=== PATIENT | female | born 1970 | race Caucasian/White ===

== ENCOUNTER 2020-03-10 21:45 | Inpatient (IN) | payer MEDICAID ==
[~2020-03-10] VITALS: Ht 162.6 cm; Wt 68.9 kg
[2020-03-10] MEDS ORDERED: KETOROLAC TROMETHAMINE 15 MG/ML VIAL ONE (22:21)
[2020-03-10] MEDS ORDERED: ONDANSETRON HCL/PF 4 MG/2 ML VIAL ONE (22:21)
[2020-03-10] MEDS ORDERED: ONDANSETRON HCL/PF 4 MG/2 ML VIAL IVP ONE (22:30)
[2020-03-10] MEDS ORDERED: IV NS 0.9% 500 ML BAG IV ONE (22:30)
[2020-03-10] MEDS ORDERED: KETOROLAC TROMETHAMINE INJ 30 MG/ML VIAL IV ONE (22:30)
--- NOTE | 2020-03-10 22:47 | NUR ---
VINCE FROM HOME FOR C/O FLU LIKE SYMTOMS (FEVER, CHILLS, BODY ACHE, N/V/D SOB, CP) X10 DAYS WORSE FOR PAST 2 DAYS. PT AAOX4, VSS. RR EVEN & UNLABORED. PLACED ON MONORAIL OPERATOR, SR. PT SEEN & EVAL'D BY DR. BARNES. MEDICATED ORDERED, PT BOB WELL. WILL CONT TO MONITOR.
[2020-03-10 22:48] LABS: BASOPHILS % (AUTO) 0.2 % (0.0-2.0); EOSINOPHILS % (AUTO) 0.6 % (0.0-6.0); HEMATOCRIT 43 % (33-45); HEMOGLOBIN 14.1 g/dL (11.5-14.8); LYMPHOCYTES # (AUTO) 1.5 /CMM (0.8-4.8); LYMPHOCYTES % (AUTO) 29.9 % (20.0-44.0); MEAN CORPUSCULAR HGB CONC 33 g/dl (31.0-36.0); MEAN CORPUSCULAR VOLUME 88 fL (82-100); MONOCYTES # (AUTO) 0.3 /CMM (0.1-1.30); MONOCYTES % (AUTO) 6.3 % (2.0-12.0); NEUTROPHILS # (AUTO) 3.3 /CMM (1.8-8.9); PLATELET COUNT (AUTO) 315 /CMM (150-450); RED BLOOD CELL COUNT(AUTO) 4.89 MIL/uL (4.0-5.2); WHITE BLOOD COUNT (AUTO) 5.2 K/uL (4.3-11.0)
[2020-03-10 23:02] LABS: ALBUMIN 3.7 g/dL (3.4-5.0); BILIRUBIN,DIRECT 0.2 mg/dL (0.0-0.2); BILIRUBIN,TOTAL 0.6 mg/dL (0.2-1.0); CALCIUM, SERUM 9.1 mg/dL (8.5-10.1); CREATININE 0.7 mg/dL (0.6-1.3); POTASSIUM 3.7 mmol/L (3.5-5.1); TOTAL PROTEIN, SERUM 7.7 g/dL (6.4-8.2)
[2020-03-10 23:57] LABS: ABG BASE EXCESS 0.6 mmol/L; ABG PCO2 37.4 mmHg (35.0-45.0); ABG PH 7.436 (7.350-7.450); ABG PO2 74.2 mmHg (75.0-100.0); AaDO2 81.3 mmHg; COHb 0.3 % (0.5-1.5); MetHb 0.4 % (0.0-1.5); O2Hb 93.3 % (94.0-97.0); SITE, ABG Left Radial; VENT MODE, BG 2LNC
[2020-03-11] MEDS ORDERED: ACETAMINOPHEN ES 500 MG TABLET ONE (00:05)
[2020-03-11 00:15] LABS: B-TYPE NATRIURETIC PEPTIDE 56 PG/ML (0-125)
--- NOTE | 2020-03-11 00:19 | NUR ---
GOT PT'S FRIEND , RAJ, ON THE PHONE MANAGER OF FINANCIAL REPORTING. PT GOT UPDATED WITH HER STATUS AND PENDING ADMISSION. PROCEDURE EXPLAINED TO THE PT AND COVID SWAB OBTAIBED AND SENT TO THE LAB. MEDICATED ORDERED AND WARM BLANKET PROVIDED PER PT'S REQUESTED. WILL CONT TO MONITOR ,
[2020-03-11 00:26] LABS: CREATINE KINASE, TOTAL 68 U/L (26-192); FERRITIN 339 ng/mL (8-388)
[2020-03-11 00:28] LABS: C-REACTIVE PROTEIN 5.1 mg/dL (0.0-0.9)
[2020-03-11] MEDS ORDERED: ACETAMINOPHEN ES 500 MG TABLET PO ONE (00:30)
[2020-03-11 00:46] LABS: D-DIMER 0.74 mg/L(FEU (0.17-0.50)
[2020-03-11] MEDS ORDERED: DEXAMETHASONE SOD PHOSPHATE 10 MG/ML VIAL ONE (01:58)
[2020-03-11] MEDS ORDERED: DEXAMETHASONE SOD PHOSPHATE 6 MG in IV D5W 50 ML IV ONE (02:00)
--- NOTE | 2020-03-11 02:06 | NUR ---
BED IS 104
[2020-03-11] MEDS ORDERED: MAGNESIUM HYDROXIDE 30 ML UDC PO PRN (02:30)
[2020-03-11] MEDS ORDERED: MORPHINE SULFATE INJ 2 MG/ML DISP.SYRIN IV PRN (02:30)
[2020-03-11] MEDS ORDERED: ACETAMINOPHEN 325 MG TABLET PO PRN (02:30)
[2020-03-11] MEDS ORDERED: ZOLPIDEM TARTRATE 5 MG TABLET PO PRN (02:30)
[2020-03-11] MEDS ORDERED: ALBUTEROL SULFATE INH 18 GM HFA.AER.AD IH PRN (02:30)
--- NOTE | 2020-03-11 02:33 | NUR ---
REPRT GIVEN TO JU AT [facility]
--- NOTE | 2020-03-11 02:49 | NUR ---
PT WAS TRANSFERRED TO RM 104 UNDER ACLS
[2020-03-11 03:21] VITALS: BP 140/76
[2020-03-11] MEDS ORDERED: CEFTRIAXONE 1 G VIAL ONE (03:38)
[2020-03-11] MEDS: AZITHROMYCIN 250 MG TABLET PO SCH ×2 (03:43→21:03)
[2020-03-11] MEDS: CEFTRIAXONE 1 G in IV D5W 50 ML IV SCH (03:43)
[2020-03-11 04:00] VITALS: BP 138/70
--- NOTE | 2020-03-11 04:24 | NUR ---
RN notes Admitted a 50 yr old belgian female from ER from [facility] in stable condition. On 2lpm O2 via nasal cannula tolerating well. No medical history, admitted for possible covid 19 infection and PNA. Skin assessment done, skin intact. Vital signs WNL. Alert and oriented, belgian speaking, ambulatory. No complaint of pain or discomfort. Needs attended. Kept clean and dry.
--- NOTE | 2020-03-11 05:17 | NUR ---
RN notes Complaining of pain in the abdomen 03/07, morphine 1 mg given with relief.
--- NOTE | 2020-03-11 07:45 | NUR ---
LABORER PLUMBING NOTES PATIENT RECEIVED IN BED, ALERT AND ORIENTED X 4. CYMRO SPEAKING. ON 2L NASAL CANNULA, WITH NO SOB NOTED, AND NON-LABORED BREATHING.NON PRODUCTIVE COUGH PRESENT. ON PRODUCTION SAMPLER, SINUS RHYTHM 90'S. PATIENT IV ACCESS INTACT AND PATENT. SAFETY PRECAUTIONS IMPLEMENTED WITH BED LOCKED, BED IN THE LOWEST POSITION, BILATERAL SIDE RAILS UP AND CALL LIGHT WITHIN EASY REACH OF THE PATIENT. WILL CONTINUE TO MONITOR.
[2020-03-11 08:00] VITALS: BP 120/67
[2020-03-11] MEDS: DEXAMETHASONE SOD PHOSPHATE 10 MG/ML VIAL IV SCH (08:26)
[2020-03-11] MEDS: ENOXAPARIN SODIUM 40 MG/0.4 ML DISP.SYRIN SQ SCH (08:27)
[2020-03-11] MEDS ORDERED: ACET-868 PO (08:32)
--- NOTE | 2020-03-11 09:50 | NUR ---
RN/DOMINIC RECEIVED REPORT FROM TERI. PATIENT IN BED. NO ACUTE DISTRESS NOTED. PATIENT ALERT & ORIENTED X4. PATIENT ON ROOM AIR, SATURATING WELL AT 94%, BREATHING EVEN AND UNLABORED. PATIENT ON HEARINGS REPORTER, SINUS RHYTHM NOTED. PATIENT RIGHT ANTECUBITAL IV ACCESS INTACT, PATENT, FLUSHED WELL. PATIENT SAFETY MAINTAINED. CALL LIGHT WITHIN REACH. WILL CONTINUE TO MONITOR.
[2020-03-11 10:50] LABS: HEMATOCRIT 42 % (33-45); HEMOGLOBIN 13.6 g/dL (11.5-14.8); LYMPHOCYTES # (AUTO) 0.6 /CMM (0.8-4.8); LYMPHOCYTES % (AUTO) 20.2 % (20.0-44.0); MEAN CORPUSCULAR HGB CONC 32 g/dl (31.0-36.0); MEAN CORPUSCULAR VOLUME 88 fL (82-100); MONOCYTES # (AUTO) 0.1 /CMM (0.1-1.30); MONOCYTES % (AUTO) 2.5 % (2.0-12.0); NEUTROPHILS # (AUTO) 2.4 /CMM (1.8-8.9); NEUTROPHILS % (AUTO) 77.3 % (43.0-81.0); PLATELET COUNT (AUTO) 315 /CMM (150-450); RED BLOOD CELL COUNT(AUTO) 4.77 MIL/uL (4.0-5.2); WHITE BLOOD COUNT (AUTO) 3.1 K/uL (4.3-11.0)
[2020-03-11 11:11] LABS: ALBUMIN 3.1 g/dL (3.4-5.0); BILIRUBIN,TOTAL 0.5 mg/dL (0.2-1.0); CALCIUM, SERUM 8.3 mg/dL (8.5-10.1); CREATININE 0.7 mg/dL (0.6-1.3); MAGNESIUM 2.4 mg/dL (1.8-2.4); POTASSIUM 3.9 mmol/L (3.5-5.1); TOTAL PROTEIN, SERUM 7.4 g/dL (6.4-8.2)
[2020-03-11 11:18] LABS: THYROID STIMULATING HORMONE 1.448 uIU/mL (0.358-3.74)
[2020-03-11 12:00] VITALS: BP 119/70
[2020-03-11] MEDS ORDERED: FUROSEMIDE 40 MG/4 ML VIAL IV ONE (15:30)
[2020-03-11 16:00] VITALS: BP 129/73
--- NOTE | 2020-03-11 18:37 | NUR ---
RN/DOMINIC PATIENT IN BED. NO ACUTE DISTRESS NOTED. PATIENT ALERT & ORIENTED X4. PATIENT ON 2L OXYGEN VIA NASAL CANULA, SATURATING WELL AT 94%, BREATHING EVEN AND UNLABORED. PATIENT ON MICROSOFT APPLICATION DEVELOPER, SINUS RHYTHM NOTED. PATIENT RIGHT ANTECUBITAL IV ACCESS INTACT, PATENT, FLUSHED WELL. PATIENT SAFETY MAINTAINED. CALL LIGHT WITHIN REACH. WILL ENDORSE PLAN OF CARE TO ONCOMING NURSE FOR CONTINUITY OF CARE
--- NOTE | 2020-03-11 19:10 | NUR ---
RN OPENING NOTES: RECEIVED PT A/OX4 IN BED RESTING COMFORTABLY. IVORIAN SPEAKING ONLY.PATIENT IN NO S/SX OF ACUTE DISTRESS AT THIS TIME. NO SOB NOTED. PATIENT'S BREATHING IS EVEN AND UNLABORED. PATIENT IS ON 2 L OF OXYGEN VIA NC; TOLERATING WELL. PATIENT ON TELE MONITORING READING SINUS RHYTHM HR IS @84 BPM AT TIME OF RECEIVED. NOTED IV SITE ON R AC #20; PATENT IN INTACT,NO S/S OF INFECTION OR INFILTRATION. SAFETY MEASURES HAVE BEEN PROVIDED AND IMPLEMENTED. PATIENT BED ALARM IS ON. HEAD OF BED ELEVATED. BED IS LOCKED, IN LOWEST POSITION AND SIDE RAILS UP. CALL LIGHT WITHIN REACH OF THE PATIENT. ISOLATION PRECAUTIONS IN PLACE. WILL CONTINUE TO MONITOR AND REASSESS FOR ANY CHANGES.
[2020-03-11] MEDS: MAG HYDROX/AL HYDROX/SIMETH 30 ML UDC PO PRN (19:25)
[2020-03-11 20:00] VITALS: BP 114/77
--- NOTE | 2020-03-11 20:05 | NUR ---
CRITICAL LAB VALUE MOLD MOVER NOTE: TELEPHONE CALL FROM TO OF CLINICAL LAB, STATED PATIENT'S COVID TEST RESULT IS POSITIVE. RESULT READ BACK. INFORMATION RELAYED TO PRIMARY RNROGELIO. LIFE INSURANCE SPECIALIST MADE AWARE.
[2020-03-11] MEDS: HYDROCODONE/APAP 5/325MG TABLET PO PRN (21:04)
--- NOTE | 2020-03-12 00:05 | NUR ---
RN NOTES GRIEVANCE MANAGER ENDORSED THAT PATIENT REFUSED TO HAVE HER VITAL SIGNS TAKEN; SPOKE WITH PATIENT AND EXPLAINED RISK AND BENEFITS. PT STILL REFUSED. ROLL FINISHER MADE AWARE.
[2020-03-12] MEDS: CEFTRIAXONE 1 G in IV D5W 50 ML IV SCH (03:04)
[2020-03-12 04:00] VITALS: BP 113/54
--- NOTE | 2020-03-12 06:35 | NUR ---
RN CLOSING NOTES PATIENT REMAINS IN ROOM IN NO SIGNS OF RESPIRATORY DISTRESS. PATIENT SATURATING 95%. VITAL SIGNS WNL. SAFETY PRECAUTIONS IN PLACE AND COMFORT MEASURES RENDERED. BED IN LOWEST POSITION, CALL LIGHT WITHIN REACH, BREAKS ON, SIDE RAILS UP. ALL NEEDS ATTENDED, MEDICATIONS GIVEN SCHEDULED AND ORDERED ; SHIFT ASSESSMENT/BEDBATH/SKIN CARE DONE. PATIENT KEPT CLEAN AND DRY. WILL ENDORSE TO INCOMING SHIFT FOR GUALBERTO.
[2020-03-12 06:47] LABS: BASOPHILS % (AUTO) 0.2 % (0.0-2.0); HEMATOCRIT 40 % (33-45); LYMPHOCYTES # (AUTO) 1.8 /CMM (0.8-4.8); LYMPHOCYTES % (AUTO) 28.4 % (20.0-44.0); MEAN CORPUSCULAR HGB CONC 33 g/dl (31.0-36.0); MEAN CORPUSCULAR VOLUME 88 fL (82-100); MONOCYTES # (AUTO) 0.6 /CMM (0.1-1.30); MONOCYTES % (AUTO) 9.2 % (2.0-12.0); NEUTROPHILS # (AUTO) 3.9 /CMM (1.8-8.9); NEUTROPHILS % (AUTO) 62.2 % (43.0-81.0); PLATELET COUNT (AUTO) 388 /CMM (150-450); RED BLOOD CELL COUNT(AUTO) 4.53 MIL/uL (4.0-5.2); WHITE BLOOD COUNT (AUTO) 6.2 K/uL (4.3-11.0)
[2020-03-12 07:01] LABS: CALCIUM, SERUM 8.8 mg/dL (8.5-10.1); CREATININE 0.7 mg/dL (0.6-1.3); MAGNESIUM 2.3 mg/dL (1.8-2.4); PHOSPHORUS 3.9 mg/dL (2.5-4.9); POTASSIUM 3.8 mmol/L (3.5-5.1)
--- NOTE | 2020-03-12 07:10 | NUR ---
RN OPENING NOTE: Received patient in bed. Awake, alert and oriented x4. Able to make needs known. Irish speaking only and needs attended to with help of Irish speaking staff present. Tele monitor showing sinus rhythm in the 70s. Isolation precaution in place for COVID-19. On cont. 02 via NC @ 2lpm being tolerated well. No SOB and not in respiratory distress. Coughing noted. Saturation at 94%. IV site clean, dry, patent and intact. No pain noted nor reported by patient. Appears relaxed and comfortable. Call light in reach. Bed locked, low and at semi-arrington's position. Side rails up x3. Safety ensured and observed. Will continue to monitor.
[2020-03-12 08:00] VITALS: BP 109/74
[2020-03-12] MEDS: DEXAMETHASONE SOD PHOSPHATE 10 MG/ML VIAL IV SCH (09:30)
[2020-03-12] MEDS: ENOXAPARIN SODIUM 40 MG/0.4 ML DISP.SYRIN SQ SCH (09:42)
[2020-03-12] MEDS ORDERED: DEXTROSE 50%-WATER 50 ML DISP.SYRIN IV PRN (10:00)
[2020-03-12] MEDS: MAG HYDROX/AL HYDROX/SIMETH 30 ML UDC PO PRN (11:29)
[2020-03-12 12:00] VITALS: BP 118/72
[2020-03-12] MEDS: BLOOD SUGAR DIAGNOSTIC 1 EACH STRIP IN SCH ×3 (12:00→21:44)
--- NOTE | 2020-03-12 13:00 | NUR ---
RN note: patient refused scheduled insulin dose. r/b explained, offered x3.
--- NOTE | 2020-03-12 14:00 | NUR ---
Rn note: Bertha Hoyt made rounds and saw patient.
[2020-03-12 16:00] VITALS: BP 121/82
[2020-03-12] MEDS: METFORMIN 500 MG TABLET PO SCH (18:19)
[2020-03-12] MEDS: HYDROCODONE/APAP 5/325MG TABLET PO PRN (18:19)
[2020-03-12] MEDS: INSULIN REGULAR, HUMAN 100 UNIT/ML 3 ML VIAL SQ PRN ×2 (18:48→21:45)
--- NOTE | 2020-03-12 19:05 | NUR ---
RN OPENING NOTES: RECEIVED PT A/OX4 IN BED RESTING COMFORTABLY. CHADIAN SPEAKING PATIENT.PATIENT IN NO S/SX OF ACUTE DISTRESS AT THIS TIME. NO SOB NOTED. PATIENT'S BREATHING IS EVEN AND UNLABORED. PATIENT IS ON 2 L OF OXYGEN VIA NC; TOLERATING WELL. PATIENT ON TELE MONITORING READING SINUS RHYTHM HR IS @56 BPM AT TIME OF RECEIVED. NOTED IV SITE ON R AC #20; PATENT IN INTACT,NO S/S OF INFECTION OR INFILTRATION. SAFETY MEASURES HAVE BEEN PROVIDED AND IMPLEMENTED. PATIENT BED ALARM IS ON. HEAD OF BED ELEVATED. BED IS LOCKED, IN LOWEST POSITION AND SIDE RAILS UP. CALL LIGHT WITHIN REACH OF THE PATIENT. ISOLATION PRECAUTIONS IN PLACE. WILL CONTINUE TO MONITOR AND REASSESS FOR ANY CHANGES.
--- NOTE | 2020-03-12 19:50 | NUR ---
RN CLOSING NOTE: No changes noted on shift. Patient remains in bed. Awake, alert and oriented x4. Able to make needs known. Serbian speaking only and needs attended to with help of Serbian speaking staff present and with family members over the phone contacted by the patient. Tele monitor showing sinus rhythm in the 70s. Isolation precaution in place for COVID-19. On room air and tolerating well, no SOB and not in respiratory distress. Coughing noted. Saturation at 96%. IV site clean, dry, patent and intact. No pain noted nor reported by patient. Appears relaxed and comfortable. Call light in reach. Bed locked, low and at semi-arrington's position. Side rails up x3. Safety ensured and observed. Treatment given as ordered. Patient refused scheduled insulin per blood sugar level. Endorsed to oncoming shift for GUALBERTO.
[2020-03-12 20:00] VITALS: BP 133/77
--- NOTE | 2020-03-12 23:45 | NUR ---
RN NOTES RECEIVED PATIENT, CALM, RESTING COMFORTABLY, SAFETY MEASURES IN PLACE, ASPIRATION PRECAUTION EMPHASIZED. NO SIGNS OF ACUTE RESPIRATORY OR CARDIAC DISTRESS NOTED. BED IN LOW LOCKED POSITION, CALL LIGHT WITHIN EASY REACH. KEEP CLEAN WARM DRY AND COMFORTABLE. IV ACCESS INTACT AND PATENT ON HER RIGHT AC G#20 INTACT AND PATENT. TELE MONITOR READS SINUS YULISA 58. ISOLATION PRECAUTION IN PLACE FOR COVID-19. ALL NEEDS ANTICIPATED. WILL CONTINUE TO MONITOR ACCORDINGLY.
[2020-03-13 00:55] VITALS: BP 141/81
[2020-03-13] MEDS: CEFTRIAXONE 1 G in IV D5W 50 ML IV SCH (03:02)
[2020-03-13 04:13] VITALS: BP 119/71
--- NOTE | 2020-03-13 06:31 | NUR ---
RN NOTES ALL NEEDS ATTENDED AND MET, ABLE TO REST AND SLEPT AT INTERVALS, PATIENT, CALM, RESTING COMFORTABLY, SAFETY MEASURES IN PLACE, ASPIRATION PRECAUTION EMPHASIZED. NO SIGNS OF ACUTE RESPIRATORY OR CARDIAC DISTRESS NOTED. BED IN LOW LOCKED POSITION, CALL LIGHT WITHIN EASY REACH. KEEP CLEAN WARM DRY AND COMFORTABLE. IV ACCESS INTACT AND PATENT ON HER RIGHT AC G#20 INTACT AND PATENT. TELE MONITOR READS SINUS YULISA 58. ISOLATION PRECAUTION IN PLACE FOR COVID-19. ALL NEEDS ANTICIPATED. WILL ENDORSE TO AM NURSE FOR CONTINUITY OF CARE.
[2020-03-13 06:51] LABS: BASOPHILS % (AUTO) 0.1 % (0.0-2.0); EOSINOPHILS % (AUTO) 0.1 % (0.0-6.0); HEMATOCRIT 39 % (33-45); HEMOGLOBIN 12.9 g/dL (11.5-14.8); LYMPHOCYTES # (AUTO) 1.9 /CMM (0.8-4.8); LYMPHOCYTES % (AUTO) 27.8 % (20.0-44.0); MEAN CORPUSCULAR HGB CONC 33 g/dl (31.0-36.0); MEAN CORPUSCULAR VOLUME 87 fL (82-100); MONOCYTES # (AUTO) 0.5 /CMM (0.1-1.30); MONOCYTES % (AUTO) 7.9 % (2.0-12.0); NEUTROPHILS # (AUTO) 4.4 /CMM (1.8-8.9); NEUTROPHILS % (AUTO) 64.1 % (43.0-81.0); PLATELET COUNT (AUTO) 431 /CMM (150-450); RED BLOOD CELL COUNT(AUTO) 4.52 MIL/uL (4.0-5.2); WHITE BLOOD COUNT (AUTO) 6.9 K/uL (4.3-11.0)
[2020-03-13] MEDS: BLOOD SUGAR DIAGNOSTIC 1 EACH STRIP IN SCH ×4 (07:34→21:28)
[2020-03-13] MEDS: INSULIN REGULAR, HUMAN 100 UNIT/ML 3 ML VIAL SQ PRN ×4 (07:35→21:29)
--- NOTE | 2020-03-13 07:35 | NUR ---
RN OPENING NOTE Patient is resting in bed, A/O x4, showing no signs of acute distress or SOB, saturating >95% on RA. BS this AM 97--no insulin coverage per protocol. IV line in the RAC#20 g is clean and intact flushing well. Bed is in lowest position, side rails x3 in upright position, call light is within reach, fall safety and aspiration precautions enforced. Will continue with plan of care.
[2020-03-13 07:58] LABS: ALBUMIN 3.3 g/dL (3.4-5.0); BILIRUBIN,TOTAL 0.4 mg/dL (0.2-1.0); CALCIUM, SERUM 8.7 mg/dL (8.5-10.1); CREATININE 0.7 mg/dL (0.6-1.3); MAGNESIUM 2.4 mg/dL (1.8-2.4); POTASSIUM 3.9 mmol/L (3.5-5.1); TOTAL PROTEIN, SERUM 8.7 g/dL (6.4-8.2)
[2020-03-13 08:00] VITALS: BP 130/78
[2020-03-13] MEDS: ENOXAPARIN SODIUM 40 MG/0.4 ML DISP.SYRIN SQ SCH (08:06)
[2020-03-13] MEDS: METFORMIN 500 MG TABLET PO SCH ×2 (08:09→16:34)
[2020-03-13] MEDS: DEXAMETHASONE SOD PHOSPHATE 10 MG/ML VIAL IV SCH (08:09)
--- NOTE | 2020-03-13 11:40 | NUR ---
RN NOTE BS 151. NON-ADMIN INSULIN. PATIENT REFUSED.
[2020-03-13 12:00] VITALS: BP 128/80
[2020-03-13 16:00] VITALS: BP 130/76
[2020-03-13] MEDS: ONDANSETRON HCL/PF 4 MG/2 ML VIAL IVP PRN (17:09)
[2020-03-13] MEDS: HYDROCODONE/APAP 5/325MG TABLET PO PRN ×2 (17:10→20:52)
--- NOTE | 2020-03-13 18:35 | NUR ---
RN CLOSING NOTE Patient is resting in bed, A/O x4, showing no signs of acute distress or SOB, saturating >95% on RA. Patient refused metformin at 1700 and refuse insulin coverage. IV line in the RAC#20 g is clean and intact flushing well. All patient needs met, all due medications given, patient is ambulatory and independent with care. Bed is in lowest position, side rails x3 in upright position, call light is within reach, fall safety and aspiration precautions enforced. Will endorse to process control supervisor.
[2020-03-13 20:00] VITALS: BP 120/81
[2020-03-13] MEDS: MAG HYDROX/AL HYDROX/SIMETH 30 ML UDC PO PRN (20:08)
[2020-03-14] MEDS: CEFTRIAXONE 1 G in IV D5W 50 ML IV SCH (03:11)
[2020-03-14] MEDS: HYDROCODONE/APAP 5/325MG TABLET PO PRN ×2 (03:22→16:02)
--- NOTE | 2020-03-14 04:44 | NUR ---
Alert and orientated X4 Afebrile this 12 hours C/O generalized body aches relieved with NORCO Tab 1 given X2 this 12 hours Speaks of concern of being discharged and having to go home d/t there are kids in the house Steady on her legs when ambulating in the room No appetite HS Blood sugar 149 refusing insulin concerned that if she take insulin her sugar will drop too low!
[2020-03-14 05:16] VITALS: BP 118/72
[2020-03-14 06:54] LABS: BASOPHILS % (AUTO) 0.2 % (0.0-2.0); EOSINOPHILS % (AUTO) 0.2 % (0.0-6.0); HEMATOCRIT 40 % (33-45); HEMOGLOBIN 13.2 g/dL (11.5-14.8); LYMPHOCYTES # (AUTO) 2.4 /CMM (0.8-4.8); LYMPHOCYTES % (AUTO) 32.3 % (20.0-44.0); MEAN CORPUSCULAR HGB CONC 33 g/dl (31.0-36.0); MEAN CORPUSCULAR VOLUME 87 fL (82-100); MONOCYTES # (AUTO) 0.8 /CMM (0.1-1.30); MONOCYTES % (AUTO) 10.3 % (2.0-12.0); NEUTROPHILS # (AUTO) 4.2 /CMM (1.8-8.9); PLATELET COUNT (AUTO) 451 /CMM (150-450); RED BLOOD CELL COUNT(AUTO) 4.58 MIL/uL (4.0-5.2); WHITE BLOOD COUNT (AUTO) 7.4 K/uL (4.3-11.0)
[2020-03-14 07:56] LABS: CALCIUM, SERUM 8.8 mg/dL (8.5-10.1); CREATININE 0.7 mg/dL (0.6-1.3); MAGNESIUM 2.5 mg/dL (1.8-2.4); PHOSPHORUS 4.1 mg/dL (2.5-4.9); POTASSIUM 3.9 mmol/L (3.5-5.1)
[2020-03-14 08:00] VITALS: BP 100/56
--- NOTE | 2020-03-14 08:00 | NUR ---
LITHOGRAPHING MACHINE OPERATOR NOTES PATIENT ON ROOM AIR SATURATING 96%.
--- NOTE | 2020-03-14 08:00 | NUR ---
DEVULCANIZER OPERATOR NOTES NO INSULIN WAS ADMINISTRATED PER SLIDING SCALE, BG 100MG/DL.
[2020-03-14] MEDS: BLOOD SUGAR DIAGNOSTIC 1 EACH STRIP IN SCH ×4 (08:07→22:13)
--- NOTE | 2020-03-14 08:15 | NUR ---
REPLENISHMENT SPECIALIST NOTES PATIENT IN BED A/OX4 TAMAZIGHT SPEAKER, UNDERSTAND [place] CITIZEN. NO SOB OR DISCOMFORT NOTED AT THIS TIME. PATIENT IS ANXIOUS AND WORRY ABOUT HAVING POSITIVE COVID RESULT. SHE VERBALIZED THAT SHE DOES NOT WANT INFECT HER FAMILY MEMBERS AND IF POSSIBLE SHE WANTS TO STAY MORE DAYS IN HOSPITAL. RIGHT AC NOT PATENT REMOVED AND NEW IV SITE OBTAINED AT RIGHT HAND. CALL LIGHT WITHIN REACH, BED AT THE LOWEST POSITION LOCKED. WILL CONTINUE TO MONITOR THE PATIENT.
[2020-03-14] MEDS: METFORMIN 500 MG TABLET PO SCH ×3 (09:00→17:00)
[2020-03-14] MEDS: DEXAMETHASONE SOD PHOSPHATE 10 MG/ML VIAL IV SCH (09:10)
[2020-03-14] MEDS: ENOXAPARIN SODIUM 40 MG/0.4 ML DISP.SYRIN SQ SCH (09:12)
--- NOTE | 2020-03-14 11:45 | NUR ---
STAFF PSYCHIATRIST NOTES GRAIN TRADER (KENNEDY)CALLED AND OFFER PATIENT IF SHE WANTS TO STAY IN [facility] FOR FREE. PATIENT AGREED. PATIENT WANTS TO ISOLATE HERSELF FROM HER DAUGHTER AND GRANDDAUGHTERS. PHARMACY INFO ENTERED IN THE COMPUTER. DR WESTFALL WILL PROVIDE PRESCRIPTION TO PATIENT FOR DISCHARGE.
[2020-03-14 12:00] VITALS: BP 102/55
--- NOTE | 2020-03-14 12:09 | NUR ---
MEDICAL SAFETY DIRECTOR NOTES BG 172 MG/DL. PATIENT IS REFUSING INSULIN. EXPLAINED THAT PATIENT RECEIVE INSULIN DURING THE HOSPITALIZATION . PATIENT REFUSED AGAIN.
[2020-03-14 16:00] VITALS: BP 124/73
--- NOTE | 2020-03-14 16:02 | NUR ---
AVIONICS SYSTEMS INTEGRATION SPECIALIST NOTES PATIENT IS COMPLAINING OF PAIN VITALS WNL . NORCO WILL BE GIVEN.
--- NOTE | 2020-03-14 17:23 | NUR ---
TONGUE STITCHER NOTES PATIENT REFUSED BLOOG SUGAR CHECK. Addendum: 03/14/20 at 1723 by MARLYS MATHUR RN BLOOD SUGAR
--- NOTE | 2020-03-14 18:50 | NUR ---
DYE AUTOMATION OPERATOR NOTES PATIENT IN BED SLEEPING. REFUSED THE DIABETIC MEDS AND ACCU CHECK TODAY FOR 1700. NO SOB OR DISCOMFORT AT THIS TIME. ABLE TO AROUSE WHEN NAME CALLED. ALL NEEDS ATTENDED.REPORT WILL BE GIVEN TO CHILD CUSTODY EVALUATOR NURSE FOR GUALBERTO.
--- NOTE | 2020-03-14 19:40 | NUR ---
RN OPENING NOTE RECEIVED PATIENT IN BED RESTING ALERT ORIENTED X4 VERBALLY RESPONSIVE IRAQI SPEAKER,ABLE TO MAKE NEEDS KNOWN ON ROOM AIR O2:96% NO SOB NOT ACUTE ACUTE DISTRESS NOTED,AMBULATORY,CONTINENT TO BOWEL/BLADDER,SINUS RHYTHM,HR :62 CALL LIGHT WITHIN REACH,IMPLEMENT SAFETY MEASURE CONTINUE TO MONITOR.
--- NOTE | 2020-03-14 19:45 | NUR ---
RN NOTE IV SITE IS ON RIGHT ARM INTACT PATENT FLUSHED.
[2020-03-14 20:00] VITALS: BP 114/75
--- NOTE | 2020-03-14 22:10 | NUR ---
RN NOTE BLOOD SUGAR IS 134 AND PATIENT REFUSED TO HAVE INSULIN INJECTION.
[2020-03-14] MEDS: INSULIN REGULAR, HUMAN 100 UNIT/ML 3 ML VIAL SQ PRN (22:14)
--- NOTE | 2020-03-14 22:47 | NUR ---
RN NOTE AMBIEN 5 MG PRN SLEEPING PILL GIVEN PER PATIENT REQUEST.
[2020-03-15] VITALS: BP 125/64
[2020-03-15] MEDS: CEFTRIAXONE 1 G in IV D5W 50 ML IV SCH (03:00)
[2020-03-15 04:00] VITALS: BP 106/63
--- NOTE | 2020-03-15 06:42 | NUR ---
RN CLOSING NOTE PATIENT REMAINS ON ALERT ORIENTED X4 ICELANDIC SPEAKER,VERBALLY RESPONSIVE SHE IS ON ROOM AIR 96% NO SOB NOT ACUTE DISTRESS NOTED,IV SITE IS INTACT PATENT ALL DUE MEDS GIVEN MD ORDERED,KEPT CLEAN AND DRY ALL THE TIME,KEPT CALL LIGHT WITHIN REACH,ENDORSE NEXT COMING SHIFT FOR CONTINUATION OF CARE.
--- NOTE | 2020-03-15 07:30 | NUR ---
TELE/RN OPENING NOTE Patient resting in bed, A&O x 4, Congolese speaking. No complaints of pain/discomfort at this time. Breathing even and non-labored on RA. No respiratory or cardiac distress noted. On tele monitor, reading SR 70. IV access noted on R hand #22, patent and intact, and flushing well. No s/s of infection, infiltration, or bleeding noted on site. Sensation from all peripheral extremities intact. Will continue with current plan of care.
[2020-03-15 08:00] VITALS: BP 108/57
[2020-03-15] MEDS: DEXAMETHASONE SOD PHOSPHATE 10 MG/ML VIAL IV SCH (08:12)
[2020-03-15] MEDS: METFORMIN 500 MG TABLET PO SCH ×2 (08:12→17:00)
[2020-03-15] MEDS: BLOOD SUGAR DIAGNOSTIC 1 EACH STRIP IN SCH ×3 (08:12→17:18)
[2020-03-15] MEDS: ENOXAPARIN SODIUM 40 MG/0.4 ML DISP.SYRIN SQ SCH (08:14)
[2020-03-15] MEDS: ONDANSETRON HCL/PF 4 MG/2 ML VIAL IVP PRN (08:47)
--- NOTE | 2020-03-15 08:50 | NUR ---
TELE/RN NOTE Patient reports feeling nauseous. Gave zofran 4mg. Will continue to monitor for any changes of condition.
[2020-03-15] MEDS ORDERED: DEXA4TAB PO (09:38)
--- NOTE | 2020-03-15 11:30 | NUR ---
TELE/RN NOTES Patient complaints of 6/10 chest pain, non-radiating. Vital signs taken, BP 121/70, HR 73, SpO2 97% on RA, Temp 97.5, and RR 18. BS 170, refused insulin. Notified N[place]is [place] NP, ordered stat EKG and troponin. Will cont to monitor. Addendum: 03/15/20 at 1151 by COURTNEY MICHEL RN On tele monitor, reading SR 70.
--- NOTE | 2020-03-15 11:39 | NUR ---
patient c/o chest pain 01/05,stat ekg and troponin done per md.
[2020-03-15 11:40] VITALS: BP 121/70
[2020-03-15] MEDS: HYDROCODONE/APAP 5/325MG TABLET PO PRN ×2 (11:42→17:07)
--- NOTE | 2020-03-15 11:47 | NUR ---
TELE/RN NOTES BS 170, patient refused insulin. Educated risks and benefits, still insists to refuse.
--- NOTE | 2020-03-15 11:50 | NUR ---
RT STAT EKG DONE. GAVE RESULTS TO COURTNEY CAZARES. SINUS RHYTHM
--- NOTE | 2020-03-15 11:50 | NUR ---
RT STAT EKG DONE. RESULTS GIVEN TO SAGE VALDEZ. Addendum: 03/15/20 at 1246 by STANISLAV REARDON RT Amended: Links added.
--- NOTE | 2020-03-15 11:53 | NUR ---
norco given ,awaits trop and ekg result,will continue to followup.
[2020-03-15 12:00] VITALS: BP 121/70
--- NOTE | 2020-03-15 15:48 | NUR ---
TELE/RN NOTES Patient pulled out R hand #22 IV. Assessed skin, remains intact. Catheter intact. Placed dry, clean, dressing on site. No s/s of infiltration, infection, or bleeding noted. Will continue to monitor for any changes of condition.
[2020-03-15 16:00] VITALS: BP 106/62
--- NOTE | 2020-03-15 17:42 | NUR ---
TELE/LOCAL SUPERINTENDENT NOTES Patient picked up by ambulance at 1735. No complaints of pain/discomfort upon discharge. Patient remains A&O x 4, VSS, afebrile, remains SR 75 on tele. No respiratory or cardiac distress noted. Educated patient and Fe (primary contact number) about discharge instructions, both verbalized understanding, answered their questions to their satisfaction. Skin remains intact, no new impairments noted. IV access has been removed, skin on right hand has no infection, bleeding, or infiltration noted. Tele monitor removed. Sensation from all peripheral extremities remain intact. Patient left facility with along with belongings and hospitalization documents.
== END 2020-03-15 17:45 | disposition home or self-care (01) | DRG 137 ==
LOC: EDBD 21:48 → ER 21:48 → TELE1 03-11 02:12
PROVIDERS: ADMIT Registered Nurse; ATTEND Nurse Practitioner Acute Care
DX: U07.1 COVID-19 (principal); T39.315A Adverse effect of propionic acid derivatives, initial encounter; J12.89 Other viral pneumonia; J96.01 Acute respiratory failure with hypoxia; F41.9 Anxiety disorder, unspecified; A08.4 Viral intestinal infection, unspecified; D68.59 Other primary thrombophilia; Y92.9 Unspecified place or not applicable; K76.0 Fatty (change of) liver, not elsewhere classified
CPT/HCPCS: 36415; 36600; 71045-TC; 80048-TC; 80053-TC; 80061-TC; 80076-TC; 82550-TC; 82728-TC; 82803-TC; 82962-TC; 83605-TC; 83615-TC; 83690-TC; 83735-TC; 83880; 84100-TC; 84443-TC; 84484-TC; 84702-TC; 85025-TC; 85378-TC; 85385-TC; 85730-TC; 86140-TC; 87040-TC; 87081-TC; G0378; J0696; J1100; J1650; J1815; J1885; J1940; J2270; J2405; J7040; J7050; J7060; U0003-CS